=== PATIENT | male | born 1965 | race Caucasian/White ===

== ENCOUNTER 2024-01-01 18:55 | Emergency (ER) | payer BC, SELFPAY ==
[2024-01-01] VITALS (11 sets, daily range): BP systolic 120–133; BP diastolic 77–92; PULSE 78–90; RESP 15–22; O2SAT 83–100
--- NOTE | ~2024-01-01 | XR_ITS ---
EXAMINATION: XR chest 1V portable DATE: 01/01/2024 19:36 INDICATION: Anaphylaxis. TECHNIQUE: A single frontal view of the chest was obtained. COMPARISON: None. FINDINGS: There is no pneumonia, pleural effusion, or pneumothorax. The heart size is normal. IMPRESSION: 1. No acute cardiopulmonary disease. Reviewed, dictated and finalized at location E.
--- NOTE | 2024-01-01 19:10 | ED.ALLEREA ---
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 Had treatments in his dinner. Started having some swelling in his eyelids and lower lip about 2 hours ago. Denies any throat swelling, tongue swelling, or difficulty breathing. He has never been intubated before for this. This is the worst his allergic reaction has ever been Related Data Allergies Allergy/AdvReac Type Severity Reaction Status Date / Time NUTS Allergy Mild Uncoded 02/14/08 01:34 Review of Systems Review of Systems: All systems reviewed & are unremarkable except as noted in HPI and below Exam Narrative: Constitutional: Generally well appearing, no acute distress Head: Atraumatic, no deformities. Eyes: Pupils equal, round, and reactive to light. Periorbital edema of both eyelids. Neck: Supple, no tracheal deviation, no JVD. ENMT: Mucous membranes moist. Airway widely patent. Lower lip show some edema but no other edema noted. Cardiovascular: S1, S2 auscultated. No murmurs, rubs, or gallops. No S3/S4. Normal Distal pulses. No peripheral edema. Respiratory: Lung sounds equal. No wheezes, rales, or rhonchi. Gastrointestinal: Abdomen was soft and non-tender. Non-distended. No rebound or guarding. Genitourinary: Deferred Musculoskeletal: Normal muscle tone and bulk. No obvious deformities or tenderness over extremities. Skin: No rashes. Neurological: Strength 5/5 in extremities. Cranial nerves I-XII grossly intact. Distal sensation intact. Mental Status: Awake, alert and oriented x3. Follows commands Course Vital Signs Vital signs: Vital Signs Pulse Rate 90 01/01/24 19:05 Respiratory Rate 15 01/01/24 19:05 Blood Pressure 120/86 01/01/24 19:05 Pulse Oximetry 88 L 01/01/24 19:05 Oxygen Delivery Room Air 01/01/24 19:05 Pulse Rate 90 01/01/24 20:16 Respiratory Rate 19 01/01/24 20:16 Blood Pressure 130/83 01/01/24 20:16 Pulse Oximetry 100 01/01/24 20:16 Oxygen Delivery Nasal Cannula 01/01/24 20:00 Oxygen Flow Rate 4 01/01/24 20:00 MDM - Allergic Reaction MDM Narrative Medical decision making narrative: 58-year-old male presenting for allergic reaction to tree nuts. Had tree nuts in his dinner 2 hours prior to arrival. On exam is airways patent however his angioedema his lower lip only. Nothing in his oropharynx. Has bilateral edema of the periorbital region. No other abnormalities noted. IV placed immediately. No signs of any imminent airway concern and patient says the symptoms are slightly improved from when it was at its worst. Breath sounds present bilaterally. Circulation is 2+ distal pulses. Given IM epinephrine, famotidine, dexamethasone, fluid bolus. He took 75 mg of Benadryl at home. Monitor closely for any signs of airway compromise. 2120-patient has been observed here for period of time. Not requiring any oxygen. Saturating 100% on room air. His symptoms are drastically improved. He does not want to stay anymore. I offered observation in the emergency department for several more hours but he wants to go home. Exam is significantly improved. Stable for discharge. Given prescription for EpiPen. Given discharge and follow-up instructions. Pt feeling improved and would like to go home at this point. Return precautions were given to the patient include any new or worsening symptoms or development of and not limited to any chest pain, shortness of breath, lightheadedness, abdominal pain, fevers, chills. Patient understands and agrees. They are to follow-up with her PCP. All questions were answered. I reviewed the patient's vital signs, history, allergies, and labs and imaging workup. Critical Care Time Crit
[2024-01-01] MEDS: EPINEPHrine HCL INJ 1 MG/ML AMPUL 0.3 MG IM (19:16)
[2024-01-01] MEDS: dexAMETHasone SOD PHOS INJ 10 MG/ML 1 ML VIAL IM (19:17)
[2024-01-01] MEDS: FAMOTIDINE 20 MG/2 ML VIAL IV PUSH (19:17)
[2024-01-01] MEDS: SODIUM CHLORIDE 0.9% IV 1,000 ML 999 ML IV CONT (19:26)
== END 2024-01-01 21:32 | disposition home or self-care (01) ==
PROVIDERS: Emergency Provider Emergency Medicine; PCP Family Medicine
DX: T78.3XXA Angioneurotic edema, initial encounter (principal); Z91.018 Allergy to other foods
CPT/HCPCS: 71045; 96361; 96372; 96374; 99284; J0171; J1100; J7030